=== PATIENT | male | born 2000 | race Caucasian/White ===

== ENCOUNTER 2023-04-27 18:10 | Emergency (ER) | payer BC, OTHER ==
[~2023-04-27] VITALS: Ht 182.9 cm; Wt 81.8 kg
[2023-04-27 18:16] VITALS: TEMP 98.4
[2023-04-27] MEDS ORDERED: Ondansetron 4 MG/2 ML VIAL IV ONE (18:30)
[2023-04-27] MEDS ORDERED: NS 1,000 ML IV ONE (18:30)
[2023-04-27] MEDS ORDERED: Ketorolac 30 MG/ML VIAL IV ONE (18:30)
[2023-04-27 18:33] LABS: PH 6.5 (5.0-8.5); URINE APPEARANCE CLEAR (CLEAR/HAZY); URINE BLOOD NEGATIVE (NEGATIVE); URINE COLOR YELLOW (YELLOW); URINE GLUCOSE NEGATIVE (NEGATIVE); URINE KETONE NEGATIVE (NEGATIVE); URINE NITRATE NEGATIVE (NEGATIVE); URINE PROTEIN(semi-quant) NEGATIVE (NEGATIVE)
[2023-04-27 18:41] LABS: BASO % 0.4 % (0.0-2.0); EOS # 0.1 K/mm3 (0.0-0.7); EOS % 1.3 % (0.0-4.0); GRAN # 5.7 K/mm3 (1.4-6.5); GRAN % 61.5 % (42.2-75.2); HEMATOCRIT 43.5 % (36.0-47.0); HEMOGLOBIN 15.3 g/dl (12.5-16.1); LYMPH # 2.5 K/mm3 (1.2-3.4); LYMPH % 27.2 % (20.0-51.0); MEAN CELL VOLUME 85 fl (80.0-95.0); MEAN CORPUSCULAR HEMOGLOBIN 30 pg (26-32); MEAN CORPUSCULAR HGB CONC 35 g/dl (33.0-37.0); MEAN PLATELET VOLUME 9.4 fl (7.4-10.4); MONO # 0.9 K/mm3 (0.1-0.6); MONO % 9.3 % (1.7-9.3); PLATELET COUNT 229 K/mm3 (130-400); REDCELL DISTRIBUTION WIDTH-CV 12.2 % (11.5-14.5)
[2023-04-27] MEDS ORDERED: Iohexol 300 - 100 ML VIAL IV ONE (18:49)
[2023-04-27] MEDS ORDERED: NS 50 ML IV SCH (18:49)
[2023-04-27 19:00] LABS: ALBUMIN 4.5 gm/dL (3.5-5.0); BILIRUBIN,TOTAL 0.6 mg/dL (0.2-1.2); CALCIUM 10.2 mg/dL (8.4-10.2); CREATININE, serum 0.99 mg/dL (0.72-1.25); POTASSIUM 3.6 mmol/L (3.5-4.5); TOTAL PROTEIN 7.9 gm/dL (6.2-8.1)
[2023-04-27] MEDS ORDERED: BENTYL 20MG20 MG/TAB PO (19:35)
[2023-04-27] MEDS ORDERED: DULCOLAX STOOL100 MG PO (19:35)
[2023-04-27] MEDS ORDERED: ZOFRAN 4MG T4 MG/TAB PO (19:35)
[2023-04-27] MEDS ORDERED: Dicyclomine 10 MG CAP PO ONE (19:45)
[2023-04-27 19:50] VITALS: BP 110/69; PULSE 67
[2023-04-27 20:04] LABS: COLLECTION METHOD CLEAN CATCH
== END 2023-04-27 19:56 | disposition home or self-care (01) ==
LOC: COL.ER 18:10
PROVIDERS: Emergency Medicine
DX: K59.00 Constipation, unspecified (principal)
CPT/HCPCS: J1885; J2405; J7030; Q9967